=== PATIENT | male | born 1965 | race African-American/Black ===

== ENCOUNTER 2017-11-08 17:28 | Emergency (ER) | payer BC, OTHER ==
[~2017-11-08] VITALS: Ht 193 cm; Wt 104.3 kg
[~2017-11-08 17:28] MED LIST: PLAVIX 75 MG TA75 M1 PO; TESSALON PERLE100 MG PO; VENTOLIN HFA 1818 GM INH
[2017-11-08 17:36] VITALS: BP 159/81
[2017-11-08] MEDS ORDERED: AUGMENTIN 875-1 EACH PO (17:55)
== END 2017-11-08 18:15 | disposition home or self-care (01) ==
LOC: ER 17:28
DX: S81.851A Open bite, right lower leg, initial encounter (principal); F17.210 Nicotine dependence, cigarettes, uncomplicated; W54.0XXA Bitten by dog, initial encounter; Y93.89 Activity, other specified; Y92.89 Other specified places as the place of occurrence of the external cause; Y99.8 Other external cause status

== ENCOUNTER 2019-01-18 00:12 | Emergency (ER) | payer BC, OTHER ==
[~2019-01-18] VITALS: Ht 190.5 cm; Wt 102.1 kg
[~2019-01-18 00:12] MED LIST changes: +AUGMENTIN 875-1 EACH PO
[2019-01-18] MEDS ORDERED: NORCO 5-325 TA1 EAC1 PO (02:34)
[2019-01-18] MEDS ORDERED: CYCLOBENZAPRINE5 MG PO (02:34)
[2019-01-18] MEDS ORDERED: MOBIC15 MG PO (02:34)
[2019-01-18 02:43] VITALS: BP 182/83
== END 2019-01-18 02:46 | disposition home or self-care (01) ==
LOC: ER 00:12
DX: M54.2 Cervicalgia (principal); M54.5 Low back pain; M54.6 Pain in thoracic spine; F17.210 Nicotine dependence, cigarettes, uncomplicated; Z95.5 Presence of coronary angioplasty implant and graft; V89.2XXA Person injured in unspecified motor-vehicle accident, traffic, initial encounter; Y93.89 Activity, other specified; Y92.89 Other specified places as the place of occurrence of the external cause; Y99.8 Other external cause status

== ENCOUNTER 2019-05-09 22:10 | Emergency (ER) | payer BC, OTHER ==
[~2019-05-09] VITALS: Ht 190.5 cm; Wt 99.8 kg
[~2019-05-09 22:10] MED LIST changes: +CYCLOBENZAPRINE5 MG PO; +MOBIC15 MG PO; +NORCO 5-325 TA1 EAC1 PO
[2019-05-09] MEDS ORDERED: NORCO 5-325 TA1 EAC1 PO (23:50)
[2019-05-09 23:57] VITALS: BP 153/78
== END 2019-05-09 23:58 | disposition home or self-care (01) ==
LOC: ER 22:10
DX: G89.29 Other chronic pain (principal); M54.5 Low back pain; F17.210 Nicotine dependence, cigarettes, uncomplicated; Z95.2 Presence of prosthetic heart valve